=== PATIENT | male | born 1950 | race Two or more races ===

== ENCOUNTER 2018-01-23 17:33 | Emergency (ER) | payer OTHER ==
[~2018-01-23] VITALS: Ht 177.8 cm; Wt 89.4 kg
[2018-01-23] MEDS ORDERED: COZAAR25 MG (18:01)
[2018-01-23] MEDS ORDERED: METFORMIN HCL1000 MG (18:01)
== END 2018-01-23 21:43 | disposition home or self-care (01) ==
LOC: ER 17:33
DX: H66.42 Suppurative otitis media, unspecified, left ear (principal)

== ENCOUNTER 2022-05-21 09:45 | Outpatient (CLI) | payer OTHER ==
[~2022-05-21 09:45] MED LIST: COZAAR25 MG; METFORMIN HCL1000 MG
== END 2022-05-21 09:47 | disposition home or self-care (01) ==
LOC: NUCLEAR 09:45
DX: R06.02 Shortness of breath (principal)

== ENCOUNTER 2022-08-24 12:56 | Outpatient (CLI) | payer OTHER | END 2022-08-24 13:10 | disposition home or self-care (01) | LOC: MRI 12:56 | DX: M76.61 Achilles tendinitis, right leg (principal) | CPT/HCPCS: 73721 ==

== ENCOUNTER → 2022-12-14 | Outpatient (CLI) | payer OTHER | END | disposition home or self-care (01) | LOC: RX STUDY 08:41 | DX: R13.10 Dysphagia, unspecified (principal) ==

== ENCOUNTER 2023-01-25 10:56 | Outpatient (CLI) | payer OTHER ==
[2023-01-25 11:50] LABS: URINE APPEARANCE Clear; URINE BILIRRUBIN Negative (NEGATIVE); URINE BLOOD Negative; URINE COLOR Dark Yellow; URINE LEUKOCYTE Negative; URINE NITRATE Negative; URINE PROTEIN Trace (NEGATIVE); URINE UROBILINOGEN 0.2 E.U./dl
[2023-01-25 11:53] LABS: HEMATOCRIT 41.8 % (39.0-48.0); HEMOGLOBIN 14.3 g/dL (13-16.00); MEAN CELL VOLUME 91.6 fL (80.0-100.00); MEAN CORPUSCULAR HEMOGLOBIN 31.4 pg (27.00-32.0); MEAN CORPUSCULAR HGB CONC 34.2 g/dl (32.0-36.0); PLATELET COUNT 138 K/uL (150-450); RED BLOOD COUNT 4.57 M/uL (4.00-6.00); RED CELL DISTRIBUTION WIDTH 13.4 % (11.5-14.5); URINE BACTERIA 11.3 uL (0.0-1933); URINE EPITHELIAL CELLS 5.5 uL (0.0-38.8); URINE RBC 4.3 uL (0.0-20.8); URINE WBC 13.7 uL (0.0-23.2)
[2023-01-25 12:09] LABS: URINE GLUCOSE 250 MG/DL (NEGATIVE)
[2023-01-25 12:41] LABS: CALCIUM 9.2 mg/dL (8.5-10.1); CHOL HDL RATIO 3.1 (0-5.0); CREATININE SERUM 1.06 mg/dL (0.70-1.30); GFR 68.87; POTASSIUM 4.4 mEq/L (3.5-5.1)
== END 2023-01-25 10:57 | disposition home or self-care (01) ==
LOC: LAB 10:56
DX: E11.42 Type 2 diabetes mellitus with diabetic polyneuropathy (principal); E78.2 Mixed hyperlipidemia; M54.16 Radiculopathy, lumbar region

== ENCOUNTER 2023-03-19 12:01 | Outpatient (CLI) | payer OTHER | END 2023-03-19 12:04 | disposition home or self-care (01) | LOC: RAD 12:01 | DX: M54.50 Low back pain, unspecified (principal); M25.551 Pain in right hip ==

== ENCOUNTER 2023-05-18 08:07 | Outpatient (CLI) | payer OTHER | END 2023-05-18 08:12 | disposition home or self-care (01) | LOC: RAD 08:07 | PROVIDERS: ATTEND Internal Medicine Rheumatology | DX: M88.852 Osteitis deformans of left thigh (principal) ==

== ENCOUNTER 2023-11-15 10:27 | Outpatient (CLI) | payer OTHER | END 2023-11-15 10:34 | disposition home or self-care (01) | LOC: TOM 10:27 | PROVIDERS: ATTEND Internal Medicine Rheumatology | DX: R10.31 Right lower quadrant pain (principal) ==

== ENCOUNTER 2023-11-30 10:16 | Outpatient (CLI) | payer OTHER | END 2023-11-30 10:33 | disposition home or self-care (01) | LOC: RAD 10:16 | DX: R05.9 Cough, unspecified (principal) ==

== ENCOUNTER 2024-01-25 13:59 | Outpatient (CLI) | payer OTHER | END 2024-01-25 14:02 | disposition home or self-care (01) | LOC: RAD 13:59 | DX: M88.9 Osteitis deformans of unspecified bone (principal) ==

== ENCOUNTER 2024-06-21 15:21 | Outpatient (CLI) | payer OTHER | END 2024-06-21 15:29 | disposition home or self-care (01) | LOC: RAD 15:21 | DX: R05.9 Cough, unspecified (principal) ==

== ENCOUNTER 2024-08-17 14:55 | Outpatient (CLI) | payer OTHER | END 2024-08-17 15:00 | disposition home or self-care (01) | LOC: MRI 14:55 | DX: M88.9 Osteitis deformans of unspecified bone (principal); M16.11 Unilateral primary osteoarthritis, right hip; M76.01 Gluteal tendinitis, right hip | CPT/HCPCS: 72195; 73721 ==